=== PATIENT | male | born 1995 | race Hispanic/Latino ===

== ENCOUNTER 2018-09-20 08:25 | Day surgery (SDC) | payer OTHER ==
[2018-09-20 13:09] VITALS: BP 119/81
--- NOTE | 2018-09-20 13:22 | Short Stay Summary ---
Short Stay Documentation Date of service: 09/20/18 Narrative H&P: Left neck mass, cystic lesion - History Past Medical History: No medical history Past Surgical History: No surgical history - Allergies and Medications Current Medications: Allergies No Known Allergies Allergy (Verified 09/20/18 08:57) - Physical exam General appearance: no acute distress HEENT: Atraumatic, PERRLA, EOMI, Mucous membr. moist/pink (palpable 3-4 cm left neck mass), Other - Brief post op/procedure progress note Date of procedure: 09/20/18 Pre-op diagnosis: left neck mass Post-op diagnosis: other (left neck cystic lesion) Procedure: US FNA Anesthesia: local Findings: 3-4cm cystic lesion in left neck Surgeon: GARRETT [place]NA[place] Estimated blood loss: none Pathology: list (one slide made, sample also put in satelite media) Specimen disposition: to lab Condition: stable - Hospital course Hospital course: uneventful - Disposition Condition at discharge: Good Disposition: DC-01 TO HOME OR SELFCARE Short Stay Discharge Plan Follow up with: TAVO LE MD [Primary Care Provider] - 7 Days
--- NOTE | 2018-09-20 14:55 | Ultrasound Report ---
ULTRASOUND ASPIRATE SUPERFICIAL ABSCESS HISTORY: Left neck mass, lymphadenopathy. DESCRIPTION OF PROCEDURE: No radiographic studies were available for review at this facility. 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 It was decided to proceed with an ultrasound guided fine needle aspiration of this lesion. Initial ultrasound scan of the left side of the neck demonstrates a slightly complex cystic structure measuring 4.6 x 2.0 x 2.9 cm. Informed consent was obtained. Sterile technique was utilized. 1% lidocaine for skin anesthesia. Using ultrasound guidance, fine needle aspiration of the cystic lesion was attempted. Only a small amount of thick yellow-brown fluid could be aspirated. There was no soft tissue component of this structure for biopsy. The sample was placed on a microscope slide and in satellite media for pathologic analysis per the pathologist request. The patient tolerated the procedure with minimal discomfort. IMPRESSION: Successful ultrasound-guided fine needle aspiration of a complex predominantly cystic left neck lesion as described.
== END 2018-09-20 13:44 | disposition home or self-care (01) ==
LOC: CATHLABREC 08:25 → EDSTATUS 08:30 → CATHLABREC 13:44
PROVIDERS: ATTEND Otolaryngology
DX: R59.1 Generalized enlarged lymph nodes (principal)
CPT/HCPCS: 10005; 10160; 76942; 88172; 88173; 88305; 88312; 88333; 88341; 88342

== ENCOUNTER 2020-08-28 22:41 | Emergency (ER) | payer SELFPAY | END 2020-08-28 23:30 | disposition left against medical advice (07) | LOC: ED 22:41 | DX: Z53.21 Procedure and treatment not carried out due to patient leaving prior to being seen by health care provider (principal) ==